=== PATIENT | female | born 1990 | race Caucasian/White ===

== ENCOUNTER 2022-08-29 11:41 | Inpatient (IN) | payer BC ==
[2022-08-29] MEDS ORDERED: Ondansetron 4 MG/2 ML SDV IVPUSH PRN (11:46)
[2022-08-29] MEDS ORDERED: Carboprost Tromethamine 250 MCG/1 ML Amp IM PRN (11:46)
[2022-08-29] MEDS ORDERED: Butorphanol 1 MG/ML SDV IVPUSH PRN (11:46)
[2022-08-29] MEDS ORDERED: Sodium Chloride 0.9% 20 ML SDV IV PRN (11:46)
[2022-08-29] MEDS ORDERED: Water For Irrigation,Sterile 1,000 ML Container IRR PRN (11:46)
[2022-08-29] MEDS ORDERED: Lidocaine 1% 50 ML MDV INJECT PRN (11:46)
[2022-08-29] MEDS ORDERED: Terbutaline 1 MG/ML SDV SUBCUT PRN (11:46)
[2022-08-29] MEDS ORDERED: Methylergonovine 0.2 MG/1 ML Amp IM PRN (11:46)
[2022-08-29] MEDS ORDERED: Sodium Chloride 0.9% 10 ML Syringe FLUSH PRN (11:46)
[2022-08-29] MEDS ORDERED: Tranexamic Acid 1,000 MG in Sodium Chloride 0.9% 100 ML IV PRN (11:46)
[2022-08-29] MEDS ORDERED: Misoprostol 200 MCG Tab PO PRN (11:46)
[2022-08-29] MEDS ORDERED: Sodium Chloride 0.9% 2.5 ML Syringe FLUSH PRN (11:46)
[2022-08-29] MEDS ORDERED: Lactated Ringers 1,000 ML IV SCH (12:00)
[2022-08-29] MEDS ORDERED: Ampicillin 2 GM in Sodium Chloride 0.9% 100 ML IV ONE (12:00)
[2022-08-29] MEDS ORDERED: Oxytocin/0.9 % Sodium Chloride 30 UNIT/500 ML BAG IV SCH ×2 (12:00)
[2022-08-29 14:08] LABS: BLOOD UREA NITROGEN,BUN 11 mg/dL (7.0-18.0); CARBON DIOXIDE,CO2 21.2 mmol/L (21.0-32.0); CHLORIDE,CL 103 mmol/L (98-107); GLUCOSE RANDOM 77 mg/dL (74-106); POTASSIUM,K 4.4 mmol/L (3.5-5.1); SODIUM,NA 137 mmol/L (136-145)
[2022-08-29 14:09] LABS: ESTIMATED GFR 124 mL/min (>60)
[2022-08-29] MEDS ORDERED: Ampicillin 1 GM in Sodium Chloride 0.9% 50 ML IV SCH (16:00)
[2022-08-30] MEDS ORDERED: Methylergonovine 0.2 MG/1 ML Amp IM PRN (06:14)
[2022-08-30] MEDS ORDERED: Bisacodyl 10 MG Supp RECTAL PRN (06:14)
[2022-08-30] MEDS ORDERED: Acetaminophen 500 MG Tab PO PRN (06:14)
[2022-08-30] MEDS ORDERED: Benzocaine/Menthol 20%-0.5% Spray 78 GM Cannister TOP PRN (06:14)
[2022-08-30] MEDS ORDERED: Ibuprofen 400 MG Tab PO PRN (06:14)
[2022-08-30] MEDS ORDERED: Witch Hazel Medicated Pads 40/Jar TOP PRN (06:14)
[2022-08-30] MEDS ORDERED: Docusate Sodium 100 MG Cap PO PRN (06:14)
[2022-08-30] MEDS ORDERED: Tranexamic Acid 1,000 MG in Sodium Chloride 0.9% 100 ML IV PRN (06:14)
[2022-08-30] MEDS ORDERED: Lanolin 100% Cream 7 GM Tube TOP PRN (06:14)
[2022-08-30] MEDS: Ibuprofen 800 MG Tab PO PRN ×2 (10:18→20:35)
[2022-08-30] MEDS: Acetaminophen 500 MG Tab PO PRN (10:18)
[2022-08-31] MEDS: Acetaminophen 500 MG Tab PO PRN (00:27)
[2022-08-31] MEDS: Ibuprofen 800 MG Tab PO PRN (05:30)
== END 2022-08-31 11:29 | disposition home or self-care (01) | DRG 560 ==
LOC: MW.OBCHECK 11:41 → MW.OB 11:42 → MW.OBCHECK 11:44 → MW.OB 11:46 → OBSVTOIN 08-30 04:42 → MW.OB 08-30 21:06
PROVIDERS: ADMIT Obstetrics & Gynecology; ATTEND Obstetrics & Gynecology
PROC: 10E0XZZ Delivery of Products of Conception, External Approach (ICD-10-PCS; principal; 2022-08-30)
PROC: 10907ZC Drainage of Amniotic Fluid, Therapeutic from Products of Conception, Via Natural or Artificial Opening (ICD-10-PCS; 2022-08-30)
PROC: 10D17Z9 Manual Extraction of Products of Conception, Retained, Via Natural or Artificial Opening (ICD-10-PCS; 2022-08-30)
DX: O14.04 Mild to moderate pre-eclampsia, complicating childbirth (principal); O77.0 Labor and delivery complicated by meconium in amniotic fluid; Z37.0 Single live birth; O66.0 Obstructed labor due to shoulder dystocia; O48.0 Post-term pregnancy; Z20.822 Contact with and (suspected) exposure to COVID-19; Z3A.41 41 weeks gestation of pregnancy
CPT/HCPCS: 36415; 59025; 59409; 80053; 82570; 82803; 84156; 85027; 86592; 86593; 86780; 86850; 86900; 86901; A9270-GY; J0290; J2590; J7120; U0002

== ENCOUNTER 2022-10-08 08:25 | Emergency (ER) | payer SELFPAY ==
[2022-10-08] MEDS ORDERED: Sodium Chloride 0.9% 1,000 ML IV ONE (09:09)
[2022-10-08 10:06] LABS: CORONAVIRUS COVID-19 NAA NEGATIVE (NEGATIVE); INFLUENZA A NAA NEGATIVE (NEGATIVE); INFLUENZA B NAA NEGATIVE (NEGATIVE)
[2022-10-08 10:10] LABS: BLOOD UREA NITROGEN,BUN 10 mg/dL (7.0-18.0); CARBON DIOXIDE,CO2 26.8 mmol/L (21.0-32.0); CHLORIDE,CL 99 mmol/L (98-107); ESTIMATED GFR 102 mL/min (>60); GLUCOSE RANDOM 123 mg/dL (74-106); LIPASE 99 U/L (73-393); POTASSIUM,K 3.8 mmol/L (3.5-5.1); SODIUM,NA 137 mmol/L (136-145)
[2022-10-08] MEDS ORDERED: Ketorolac 30 MG/ML SDV IVPUSH ONE (10:48)
[2022-10-08] MEDS ORDERED: metroNIDAZOLE 250 MG Tab PO ONE ×2 (12:17→12:30)
[2022-10-08] MEDS ORDERED: Ondansetron 4 MG/2 ML SDV IVPUSH ONE (12:17)
[2022-10-08] MEDS ORDERED: cefTRIAXone 1 GM in Sodium Chloride 0.9% 50 ML IV ONE (12:25)
== END 2022-10-08 13:11 | disposition home or self-care (01) ==
LOC: MW.ED 08:25
DX: N83.202 Unspecified ovarian cyst, left side (principal); N76.0 Acute vaginitis; B96.89 Other specified bacterial agents as the cause of diseases classified elsewhere; N39.0 Urinary tract infection, site not specified; A59.01 Trichomonal vulvovaginitis; Z20.822 Contact with and (suspected) exposure to COVID-19
CPT/HCPCS: 0240U; 36415; 76857; 80053; 81001; 83605; 83690; 84702; 85025; 86140; 87480; 87510; 87660; 96361; 96365; 96375; 99284; A9270; J0696; J1885; J2405; J7030

== ENCOUNTER 2023-09-13 04:21 | Emergency (ER) | payer SELFPAY ==
[2023-09-13] MEDS ORDERED: Sodium Chloride 0.9% 10 ML Syringe FLUSH PRN (04:29)
[2023-09-13] MEDS ORDERED: Sodium Chloride 0.9% 2.5 ML Syringe FLUSH PRN (04:29)
[2023-09-13 04:47] LABS: BASOPHILS ABSOLUTE AUTO 0.05 K/uL (0.00-0.20); BASOPHILS PERCENT AUTO 0.4 % (0.0-1.0); EOSINOPHILS PERCENT AUTO 0.8 % (0.0-6.0); HEMATOCRIT 37.5 % (37.0-47.0); HEMOGLOBIN 12.7 g/dL (12.0-16.0); IMMATURE GRAN ABSOLUTE AUTO 0.03 K/uL (0.00-0.05); IMMATURE GRAN PERCENT AUTO 0.3 % (0.0-0.4); LYMPHOCYTES ABSOLUTE AUTO 2.18 K/uL (1.00-4.80); LYMPHOCYTES PERCENT AUTO 18.2 % (24.0-44.0); MEAN CORPUSCULAR HGB CONC 33.9 g/dL (32.0-36.0); MEAN CORPUSCULAR VOLUME 85.6 fL (83.0-99.0); MEAN PLATELET VOLUME 8.8 fL (9.4-12.3); MONOCYTES ABSOLUTE AUTO 0.65 K/uL (0.00-0.80); MONOCYTES PERCENT AUTO 5.4 % (0.0-8.0); NEUTROPHILS ABSOLUTE AUTO 8.98 K/uL (1.80-7.70); NEUTROPHILS PERCENT AUTO 74.9 % (41.0-71.0); PLATELET COUNT,PLT 436 K/uL (150-400); RED BLOOD CELL COUNT 4.38 M/uL (4.10-5.30); WHITE BLOOD CELL COUNT,WBC 11.99 K/uL (3.9-11.3)
[2023-09-13] MEDS ORDERED: Acetaminophen 500 MG Tab PO ONE (04:57)
[2023-09-13 04:59] LABS: INR 0.93 (0.86-1.11)
[2023-09-13 05:01] LABS: APPEARANCE,URINE CLEAR; BILIRUBIN,URINE NEGATIVE (NEGATIVE); COLOR,URINE YELLOW; GLUCOSE,URINE NEGATIVE (NEGATIVE); KETONES,URINE NEGATIVE (NEGATIVE); LEUKOCYTE ESTERASE,URINE NEGATIVE (NEGATIVE); NITRITE,URINE NEGATIVE (NEGATIVE); OCCULT BLOOD,URINE LARGE (NEGATIVE); PROTEIN,URINE NEGATIVE (NEGATIVE); UROBILINOGEN,URINE 0.2 EU/dL (<2.0)
[2023-09-13 05:12] LABS: BACTERIA,URINE RARE (NEGATIVE); EPITHELIAL CELLS,URINE RARE (NONE-FEW); WBC,URINE 0-1 (0-5/HPF)
[2023-09-13 05:31] LABS: CALCIUM 9.1 mg/dL (8.5-10.1); CARBON DIOXIDE,CO2 26.1 mmol/L (21.0-32.0); CREATININE 0.9 mg/dL (0.6-1.0); EST CRCL DRUG DOSING (CG) 101.23 mL/min; POTASSIUM,K 4.1 mmol/L (3.5-5.1)
[2023-09-13] MEDS ORDERED: Ondansetron 4 MG/2 ML SDV IVPUSH ONE (06:15)
[2023-09-13] MEDS ORDERED: Naloxone 0.4 MG/ML SDV IVPUSH PRN (06:15)
[2023-09-13] MEDS ORDERED: Morphine 2 MG/ML SYRINGE IVPUSH ONE (06:15)
[2023-09-13] MEDS ORDERED: cefTRIAXone 2 GM in Sodium Chloride 0.9% 50 ML IV ONE (07:03)
== END 2023-09-13 07:39 | disposition home or self-care (01) ==
LOC: MW.ED 04:21
DX: O20.0 Threatened abortion (principal); O09.811 Supervision of pregnancy resulting from assisted reproductive technology, first trimester; Z3A.01 Less than 8 weeks gestation of pregnancy
CPT/HCPCS: 36415; 76817; 80048; 81001; 84702; 85025; 85610; 86900; 86901; 96365; 96375; 99284; A9270; J0696; J2270; J2405; J3490

== ENCOUNTER 2025-07-21 11:49 | Emergency (ER) | payer SELFPAY ==
[2025-07-21] MEDS ORDERED: Sodium Chloride 0.9% 2.5 ML Syringe FLUSH PRN (13:11)
[2025-07-21] MEDS ORDERED: Sodium Chloride 0.9% 10 ML Syringe FLUSH PRN (13:11)
[2025-07-21 13:38] LABS: APPEARANCE,URINE SLT CLOUDY; GLUCOSE,URINE NEGATIVE (NEGATIVE); OCCULT BLOOD,URINE NEGATIVE (NEGATIVE)
[2025-07-21 13:51] LABS: BASOPHILS ABSOLUTE AUTO 0.07 K/uL (0.00-0.20); BASOPHILS PERCENT AUTO 0.6 % (0.0-1.0); EOSINOPHILS ABSOLUTE AUTO 0.20 K/uL (0.00-0.45); EOSINOPHILS PERCENT AUTO 1.7 % (0.0-6.0); IMMATURE GRAN ABSOLUTE AUTO 0.04 K/uL (0.00-0.05); IMMATURE GRAN PERCENT AUTO 0.3 % (0.0-0.4); LYMPHOCYTES ABSOLUTE AUTO 1.97 K/uL (1.00-4.80); LYMPHOCYTES PERCENT AUTO 16.7 % (24.0-44.0); MEAN PLATELET VOLUME 9.6 fL (9.4-12.3); MONOCYTES ABSOLUTE AUTO 0.64 K/uL (0.00-0.80); MONOCYTES PERCENT AUTO 5.4 % (0.0-8.0); NEUTROPHILS ABSOLUTE AUTO 8.88 K/uL (1.80-7.70); NEUTROPHILS PERCENT AUTO 75.3 % (41.0-71.0); NRBC ABSOLUTE 0.00 K/uL (0.00-0.02); NRBC PERCENT 0.0 /100WBC (0.0-0.2); PLATELET COUNT,PLT 403 K/uL (150-400); RED BLOOD CELL COUNT 5.04 M/uL (4.10-5.30); WHITE BLOOD CELL COUNT,WBC 11.80 K/uL (3.9-11.3)
[2025-07-21 14:14] LABS: A/G RATIO 0.9 (0.9-1.6); ALANINE AMINOTRANSFERASE,ALT 43.0 IU/L (14-63); ASPARTATE AMNIOTRANSFERASE,AST 18.0 IU/L (15-37); BILIRUBIN TOTAL 0.9 mg/dL (0.2-1.0); BLOOD UREA NITROGEN,BUN 15.0 mg/dL (7.0-18.0); CARBON DIOXIDE,CO2 25.3 mmol/L (21.0-32.0); CHLORIDE,CL 102.0 mmol/L (98-107); CREATININE 0.6 mg/dL (0.6-1.0); EST CRCL DRUG DOSING (CG) 115.16 mL/min; GLUCOSE RANDOM 103.0 mg/dL (74-106); POTASSIUM,K 4.2 mmol/L (3.5-5.1); PROTEIN TOTAL,TP 8.6 g/dL (6.4-8.2); SODIUM,NA 140.0 mmol/L (136-145)
[2025-07-21 14:20] LABS: ESTIMATED GFR 121.0 mL/min (>60)
== END 2025-07-21 15:00 | disposition left against medical advice (07) ==
LOC: MW.ED 11:49
DX: Z87.19 Personal history of other diseases of the digestive system (principal)
CPT/HCPCS: 36415; 80053; 81003; 83690; 84703; 85025; 99283; 99284

== ENCOUNTER 2025-07-22 14:01 | Observation (INO) | payer SELFPAY ==
[2025-07-22] MEDS: Ondansetron 4 MG/2 ML SDV IVPUSH ONE (14:25)
[2025-07-22] MEDS: Alum Hydrox/Mag Hydrox/Simeth 15 ML, Metoclopramide 5 MG, Lidocaine 2% 5 ML PO ONE (14:25)
[2025-07-22 14:29] LABS: BASOPHILS ABSOLUTE AUTO 0.06 K/uL (0.00-0.20); BASOPHILS PERCENT AUTO 0.4 % (0.0-1.0); EOSINOPHILS ABSOLUTE AUTO 0.17 K/uL (0.00-0.45); EOSINOPHILS PERCENT AUTO 1.1 % (0.0-6.0); IMMATURE GRAN ABSOLUTE AUTO 0.04 K/uL (0.00-0.05); IMMATURE GRAN PERCENT AUTO 0.3 % (0.0-0.4); LYMPHOCYTES ABSOLUTE AUTO 2.43 K/uL (1.00-4.80); LYMPHOCYTES PERCENT AUTO 16.1 % (24.0-44.0); MEAN PLATELET VOLUME 9.7 fL (9.4-12.3); MONOCYTES ABSOLUTE AUTO 0.81 K/uL (0.00-0.80); MONOCYTES PERCENT AUTO 5.4 % (0.0-8.0); NEUTROPHILS ABSOLUTE AUTO 11.57 K/uL (1.80-7.70); NEUTROPHILS PERCENT AUTO 76.7 % (41.0-71.0); NRBC ABSOLUTE 0.00 K/uL (0.00-0.02); NRBC PERCENT 0.0 /100WBC (0.0-0.2); PLATELET COUNT,PLT 429 K/uL (150-400); RED BLOOD CELL COUNT 5.31 M/uL (4.10-5.30); WHITE BLOOD CELL COUNT,WBC 15.08 K/uL (3.9-11.3)
[2025-07-22 14:51] LABS: A/G RATIO 0.9 (0.9-1.6); ALANINE AMINOTRANSFERASE,ALT 46.0 IU/L (14-63); ASPARTATE AMNIOTRANSFERASE,AST 23.0 IU/L (15-37); BILIRUBIN TOTAL 1.2 mg/dL (0.2-1.0); BLOOD UREA NITROGEN,BUN 18.0 mg/dL (7.0-18.0); CARBON DIOXIDE,CO2 23.9 mmol/L (21.0-32.0); CHLORIDE,CL 103.0 mmol/L (98-107); CREATININE 0.7 mg/dL (0.6-1.0); EST CRCL DRUG DOSING (CG) 98.71 mL/min; GLUCOSE RANDOM 100.0 mg/dL (74-106); POTASSIUM,K 4.1 mmol/L (3.5-5.1); PROTEIN TOTAL,TP 9.3 g/dL (6.4-8.2); SODIUM,NA 140.0 mmol/L (136-145)
[2025-07-22 14:53] LABS: ESTIMATED GFR 117.0 mL/min (>60)
[2025-07-22] MEDS: Iopamidol 755 MG/ML 500 ML Multipack Bottle IVPUSH STA (14:59)
[2025-07-22] MEDS: Ketorolac 30 MG/ML SDV IVPUSH ONE (16:44)
[2025-07-22] MEDS ORDERED: Sodium Chloride 0.9% 2.5 ML Syringe FLUSH PRN (16:47)
[2025-07-22] MEDS ORDERED: Sodium Chloride 0.9% 10 ML Syringe FLUSH PRN (16:47)
[2025-07-22] MEDS: Lactated Ringers 1,000 ML IV SCH (18:37)
[2025-07-23] MEDS: Ketorolac 30 MG/ML SDV IVPUSH SCH (00:15)
[2025-07-23] MEDS ORDERED: Ondansetron 4 MG/2 ML SDV IVPUSH PRN (08:20)
[2025-07-23] MEDS ORDERED: fentaNYL 50 MCG/ML SDV IVPUSH PRN (08:20)
[2025-07-23] MEDS ORDERED: Albuterol 0.083% 2.5 MG/3 ML Neb Soln NEB PRN (08:20)
[2025-07-23] MEDS ORDERED: Naloxone 0.4 MG/ML SDV IVPUSH PRN (08:20)
[2025-07-23] MEDS ORDERED: propofoL 1,000 MG/100 ML 100 ML ONE (09:04)
[2025-07-23] MEDS ORDERED: Ropivacaine 0.5% 5 MG/ML 30 ML SDV ONE (09:06)
[2025-07-23] MEDS ORDERED: Morphine 10 MG/ML SDV ONE (09:12)
[2025-07-23 09:15] LABS: MEAN PLATELET VOLUME 9.4 fL (9.4-12.3); NRBC ABSOLUTE 0.00 K/uL (0.00-0.02); NRBC PERCENT 0.0 /100WBC (0.0-0.2); PLATELET COUNT,PLT 285 K/uL (150-400); RED BLOOD CELL COUNT 4.32 M/uL (4.10-5.30); WHITE BLOOD CELL COUNT,WBC 8.57 K/uL (3.9-11.3)
[2025-07-23] MEDS ORDERED: Ketorolac 30 MG/ML SDV ONE (09:15)
[2025-07-23] MEDS ORDERED: Ondansetron 4 MG/2 ML SDV ONE ×2 (09:15)
[2025-07-23] MEDS ORDERED: fentaNYL 100 MCG/2 ML SDV ONE (09:16)
[2025-07-23 09:42] LABS: A/G RATIO 0.8 (0.9-1.6); ALANINE AMINOTRANSFERASE,ALT 38.0 IU/L (14-63); ASPARTATE AMNIOTRANSFERASE,AST 18.0 IU/L (15-37); BILIRUBIN TOTAL 1.3 mg/dL (0.2-1.0); BLOOD UREA NITROGEN,BUN 10.0 mg/dL (7.0-18.0); CARBON DIOXIDE,CO2 25.8 mmol/L (21.0-32.0); CHLORIDE,CL 107.0 mmol/L (98-107); CREATININE 0.5 mg/dL (0.6-1.0); EST CRCL DRUG DOSING (CG) 138.19 mL/min; GLUCOSE RANDOM 94.0 mg/dL (74-106); POTASSIUM,K 4.1 mmol/L (3.5-5.1); PROTEIN TOTAL,TP 6.6 g/dL (6.4-8.2); SODIUM,NA 144.0 mmol/L (136-145)
[2025-07-23 09:43] LABS: ESTIMATED GFR 127.0 mL/min (>60)
[2025-07-23] MEDS ORDERED: Midazolam 1 MG/ML 2 ML SDV ONE (12:03)
[2025-07-23] MEDS ORDERED: Indocyanine Green 25 MG SDV ONE (13:09)
[2025-07-23] MEDS ORDERED: propofoL 500 MG/50 ML 50 ML ONE (13:45)
[2025-07-23] MEDS ORDERED: Esmolol 100 MG/10 ML SDV ONE ×2 (13:52→13:56)
[2025-07-23] MEDS: Acetaminophen/oxyCODONE 325-5 MG Tab PO PRN (16:33)
== END 2025-07-23 18:44 | disposition home or self-care (01) ==
LOC: MW.ED 14:01 → MW.MS 16:47
PROVIDERS: ADMIT Surgery; ATTEND Surgery
DX: K80.12 Calculus of gallbladder with acute and chronic cholecystitis without obstruction (principal); E66.9 Obesity, unspecified; Z68.32 Body mass index [BMI] 32.0-32.9, adult
CPT/HCPCS: 36415; 47562; 64488; 74177; 76705; 80053; 83690; 85025; 85027; 96361; 96365; 96375; 96376; 99285; A9270; G0378; J0665; J0690; J1171; J1805; J1885; J2003; J2250; J2272; J2405; J2543; J2704; J2795; J3010; J3490; J7030; J7120; Q9967; 00790; 99284